=== PATIENT | male | born 1990 | race Caucasian/White ===

== ENCOUNTER 2016-10-27 16:21 | Emergency (ER) | payer SELFPAY ==
[~2016-10-27] VITALS: Ht 185.4 cm; Wt 129.3 kg
[2016-10-27 16:49] LABS: BILIRUBIN,URINE NEGATIVE (NEGATIVE); KETONES,URINE 1+ (NEGATIVE); LEUKOCYTE ESTERASE ,URINE 1+ (NEGATIVE); NITRITE,URINE NEGATIVE (NEGATIVE); PH,URINE 5 (5-9); PROTEIN,URINE 2+ (NEGATIVE); UROBILINOGEN,URINE NORMAL (NORMAL)
[2016-10-27 16:56] LABS: CALCIUM OXALATE CRYSTALS,UR MODERATE /LPF
[2016-10-27] MEDS ORDERED: KETOROLAC 30 MG/ML VIAL IVP ONE (17:15)
--- NOTE | 2016-10-27 17:19 | ED GU-Male ---
General Chief Complaint: Abdominal/GI Problems Stated Complaint: PAIN WHILE URINATING/BLOOD IN URINE Nursing Triage Note: AMBULATED TO ROOM 05 WITH COMPLAINTS OF LEFT FLANK PAIN X2 DAYS. HX OF KIDNEY STONES. Source: patient Exam Limitations: no limitations (AUBREE PEREZ MD) History of Present Illness Time seen by provider: 17:14 Initial Comments The patient reports that he has a past history of kidney stones. He states that earlier this afternoon and then at work and feeling well. He urinated which appeared to be bloody and shortly thereafter noted pain which was quite sharp and reminiscent of his previous kidney stones. This was emanating from the left flank and radiating towards the pubis. He reported that his previous stone had to be removed cystoscopically. His mother also has a history of kidney stones. Timing/Duration: this afternoon Severity/Quality: moderate Location: suprapubic, left flank Activities at Onset: physical activity Prior Genitourinary Problems: none (AUBREE PEREZ MD) Allergies and Home Medications Allergies Coded Allergies: No Known Drug Allergies (Unverified , 10/27/16) Home Medications Ciprofloxacin HCl 500 Mg Tablet, 500 MG PO BID, #14 Prescribed by: STEPHANIE GUARDADO on 10/27/16 1844 Hydrocodone/Acetaminophen 1 Each Tablet, 1 EACH PO Q4H PRN for PAIN, #10 Prescribed by: STEPHANIE GUARDADO on 10/27/16 1844 Ondansetron 4 Mg Tab.rapdis, 4 MG SL Q4H PRN for NAUSEA/VOMITING-1ST LINE, #10 Prescribed by: STEPHANIE GUARDADO on 10/27/16 1844 Constitutional: see HPI EENTM: no symptoms reported Respiratory: no symptoms reported Cardiovascular: no symptoms reported Gastrointestinal: no symptoms reported Genitourinary: see HPI Musculoskeletal: no symptoms reported Skin: no symptoms reported Psychiatric/Neurological: No Symptoms Reported Endocrine: No Symptoms Reported Hematologic/Lymphatic: No Symptoms Reported (AUBREE PEREZ MD) Past Twptsvy-Ezseut-Qxnyfh Hx Patient Social History Recent Foreign Travel: No Contact w/Someone Who Travel: No Recent Infectious Disease Expo: No Recent Hopitalizations: No (AUBREE PEERZ MD) Genitourinary Genitourinary Disorders: Kidney Stones (AUBREE PEREZ MD) Physical Exam Vital Signs Vital Sign - Last 12Hours 10/27/16 16:40 Temp 98.0 Pulse 66 Resp 16 B/P (MAP) 142/93 Pulse Ox 98 (STEPHANIE BERGERON MD) Vital Signs Capillary Refill : Less Than 3 Seconds (AUBREE PEREZ MD) General Appearance: mild distress, moderate distress HEENT: normal ENT inspection Neck: full range of motion Cardiovascular: normal peripheral pulses, regular rate, rhythm, no edema, no gallop, no JVD, no murmur Respiratory: chest non-tender, lungs clear, normal breath sounds, no respiratory distress, no accessory muscle use Gastrointestinal: normal bowel sounds, non tender, soft, no organomegaly, no pulsatile mass Back: CVA tenderness (L) Extremities: normal range of motion, non-tender, normal inspection, no pedal edema, no calf tenderness, normal capillary refill, pelvis stable 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, no motor/sensory deficits, alert, normal mood/affect, oriented x 3 Skin: normal color, warm/dry Lymphatic: no adenopathy (AUBREE PEREZ MD) Progress/Results/Core Measures Results/Orders Lab Results Laboratory Tests Test 10/27/16 16:37 Range/Units Urine Color YELLOW Urine Clarity CLEAR Urine pH 5 5-9 Urine Specific [place] 1.030 H 1.016-1.022 Urine Protein 2+ H NEGATIVE Urine Glucose (UA) NEGATIVE NEGATIVE Urine Ketones 1+ H NEGATIVE Urine Nitrite NEGATIVE NEGATIVE Urine Bilirubin NEGATIVE NEGATIVE Urine Urobilinogen NORMAL NORMAL MG/DL Urine Leukocyte Esterase 1+ H NEGATIVE Urine RBC (Auto) 5+ H NEGATIVE Urine RBC >100 H /HPF Urine WBC 2-5 /HPF Urine Crystals PRESENT H /LPF Urine Calcium Oxalate Crystals MODERATE H /LPF Urine Bacteria TRACE /HPF Urine Casts NONE /LPF Urine Mucus MODERATE H /LPF Urine Culture Indicated YES (STEPHANIE BERGERON MD) My Orders Orders - STEPHANIE BERGERON MD Abdomen/Kub 1view (10/27/16 18:37) Ondansetron Injection (Zofran Injectio (10/27/16 18:45) (STEPHANIE BERGERON MD) Medications Given in ED Current Medications Medications Dose Ordered Sig/Rex Route Start Time Stop Time Status Last Admin Dose Admin Fentanyl Citrate 100 mcg ONCE ONCE IVP 10/27/16 17:45 10/27/16 17:46 DC 10/27/16 17:42 100 MCG Ketorolac Tromethamine 30 mg ONCE ONCE IVP 10/27/16 17:15 10/27/16 17:16 DC 10/27/16 17:05 30 MG (STEPHANIE BERGERON MD) Vital Signs/I&O Vital Sign - Last 12Hours 10/27/16 16:40 Temp 98.0 Pulse 66 Resp 16 B/P (MAP) 142/93 Pulse Ox 98 (STEPHANIE BERGERON MD) Blood Pressure Mean: 109 Progress Note : Progress Note Care of this patient was assumed from Dr. Perez at 18:30. Pain was well under control. He received a liter of IV fluids. Discharge instructions were reviewed. 4 mm left UVJ ureteral stone with obstruction was identified. Patient was dismissed with strainer. KUB was ordered prior to discharge. (STEPHANIE BERGERON MD) Diagnostic Imaging Diagonstic Imaging: CT Plain Films/CT/US/NM/MRI: abdomen, pelvis Comments NAME: JAYNE GUZMÁN [facility] REC#: [id number] PT STATUS: REG ER : 1990 PHYSICIAN: AUBREE PEREZ MD ADMIT DATE: 10/27/16/ER Draft Date of Exam:10/27/16 CT ABD/PELVIS WO(KIDNEY STONE) PROCEDURE: CT urinary tract, rule out kidney stone. TECHNIQUE: Multiple contiguous axial images were obtained through the abdomen and pelvis without the use of intravenous contrast. INDICATION: Left-sided flank pain. CORRELATION STUDY: None. FINDINGS: LOWER THORAX: Clear. Trace pericardial effusion. LIVER: Unenhanced liver unremarkable. GALLBLADDER: Present and unremarkable. No bile duct dilatation. SPLEEN: Unremarkable. Small splenule in the hilum. PANCREAS: Unremarkable. ADRENAL GLANDS: Unremarkable. KIDNEYS: Approximately 4 mm stone at the left ureterovesical junction results in mild left-sided obstruction. Mild periureteric stranding particularly at the distal aspect of the ureter. Right kidney and collecting system are unremarkable. ABDOMINAL AORTA: Unremarkable, nonaneurysmal. GASTROINTESTINAL TRACT: No obstruction or inflammation. Normal appendix. URINARY BLADDER: Decompressed and therefore not well evaluated. REPRODUCTIVE: A few punctate calcifications in the prostate gland. OSSEOUS STRUCTURES: No acute abnormality. Small spina bifida occulta defect in the superior sacrum. IMPRESSION: 1. Mild left-sided obstructive uropathy owing to an approximately 4 mm stone in the distal left ureter at the ureterovesical junction. Dictated on workstation # [id number] Dict: 10/27/16 1721 Trans: 10/27/16 1728 [id number] Interpreted by: LISA MULLER DO (STEPHANIE BERGERON MD) Departure Communication Progress Notes UA shows 100 RBCs per high power field (AUBREE PEREZ MD) Impression Impression: Primary Impression: Left ureteral stone Additional Impressions: Ureteral obstruction, left Nausea and vomiting Qualified Codes: R11.2 - Nausea with vomiting, unspecified Disposition: HOME, SELF-CARE Condition: Improved Departure-Patient Inst. Decision time for Depature: 18:30 (STEPHANIE BERGERON MD) Referrals: NO,LOCAL PHYSICIAN (PCP) Primary Care Physician MARS GRAY MD Patient Instructions: Kidney Stones in Adults Add. Discharge Instructions: Drink plenty of clear liquids. Strain your urine and bring any stones collected to your follow-up appointment. Please establish with a primary care provider soon as possible and follow-up with a urologist. Return to care if symptoms worsen. Use your prescriptions as directed. All discharge instructions reviewed with patient and/or family. Voiced understanding. Scripts Ondansetron (Zofran Odt) 4 Mg Tab.rapdis 4 MG SL Q4H Y for NAUSEA/VOMITING-1ST LINE, #10 TAB Prov: STEPHANIE BERGERON MD 10/27/16 Hydrocodone/Acetaminophen (Hydrocodon -Acetaminophen 5-325) 1 Each Tablet 1 EACH PO Q4H Y for PAIN, #10 TAB Prov: STEPHANIE BERGERON MD 10/27/16 Ciprofloxacin HCl (Cipro) 500 Mg Tablet 500 MG PO BID, #14 TAB Prov: STEPHANIE BERGERON MD 10/27/16 AUBREE PEREZ MD Oct 27, 2016 17:19 STEPHANIE BERGERON MD Oct 27, 2016 18:44
--- NOTE | 2016-10-27 17:28 | Diagnostic Imaging Report ---
PROCEDURE: CT urinary tract, rule out kidney stone. TECHNIQUE: Multiple contiguous axial images were obtained through the abdomen and pelvis without the use of intravenous contrast. INDICATION: Left-sided flank pain. CORRELATION STUDY: None. FINDINGS: LOWER THORAX: Clear. Trace pericardial effusion. LIVER: Unenhanced liver unremarkable. GALLBLADDER: Present and unremarkable. No bile duct dilatation. SPLEEN: Unremarkable. Small splenule in the hilum. PANCREAS: Unremarkable. ADRENAL GLANDS: Unremarkable. KIDNEYS: Approximately 4 mm stone at the left ureterovesical junction results in mild left-sided obstruction. Mild periureteric stranding particularly at the distal aspect of the ureter. Right kidney and collecting system are unremarkable. ABDOMINAL AORTA: Unremarkable, nonaneurysmal. GASTROINTESTINAL TRACT: No obstruction or inflammation. Normal appendix. URINARY BLADDER: Decompressed and therefore not well evaluated. REPRODUCTIVE: A few punctate calcifications in the prostate gland. OSSEOUS STRUCTURES: No acute abnormality. Small spina bifida occulta defect in the superior sacrum. IMPRESSION: 1. Mild left-sided obstructive uropathy owing to an approximately 4 mm stone in the distal left ureter at the ureterovesical junction. Dictated by: Dictated on workstation # [id number]
[2016-10-27] MEDS ORDERED: NS IV 1000 ML 1,000 ML IV SCH (17:45)
[2016-10-27] MEDS ORDERED: fentaNYL INJECTION 100 MCG/2 ML AMP IVP ONE (17:45)
[2016-10-27] MEDS ORDERED: HYDR-3812 PO (18:44)
[2016-10-27] MEDS ORDERED: CIPR-225 PO (18:44)
[2016-10-27] MEDS ORDERED: ONDA4TAB8 SL (18:44)
[2016-10-27] MEDS ORDERED: ONDANSETRON 4 MG/2 ML (SDV) Z0FRAN IVP ONE (18:45)
[2016-10-27 19:34] VITALS: BP 118/79
--- NOTE | 2016-10-27 19:37 | Diagnostic Imaging Report ---
INDICATION: Left flank pain x2 days. History of stones. TECHNIQUE: 2 supine view of the abdomen 7:16 PM CORRELATION STUDY: None FINDINGS: There are few gas-filled loops of small bowel noted particularly in the right upper quadrant, may reflect mild ileus. Gas and stool within the colon without findings to suggest obstruction. Gas at the level of the rectum. No definitive pathologic intra-abdominal calcifications. Spina bifida occulta defect at S1 level. IMPRESSION: 1. Few gas-filled loops of small bowel may be reflective of mild ileus pattern. No findings to suggest obstruction. Dictated by: Dictated on workstation # [id number]
== END 2016-10-27 19:34 | disposition home or self-care (01) ==
LOC: EDUNIT# 16:21 → ER 16:25
DX: N20.1 Calculus of ureter (principal); N13.5 Crossing vessel and stricture of ureter without hydronephrosis; R11.2 Nausea with vomiting, unspecified; Z87.442 Personal history of urinary calculi
CPT/HCPCS: 74000; 74176; 81000; 87088

== ENCOUNTER 2019-12-22 18:38 | Emergency (ER) | payer SELFPAY ==
[~2019-12-22] VITALS: Ht 185 cm; Wt 135.0 kg
[~2019-12-22 18:38] MED LIST: ACHD5005 PO; CIPR-225 PO; ONDA4TAB8 SL
[2019-12-22] MEDS ORDERED: NS IV 1000 ML 1,000 ML IV STA (18:55)
[2019-12-22] MEDS ORDERED: KETOROLAC 30 MG/ML VIAL IVP STA (18:55)
[2019-12-22 19:07] LABS: BILIRUBIN,URINE NEGATIVE (NEGATIVE); CLARITY,URINE CLOUDY; COLOR,URINE RED; GLUCOSE, URINE (UA) NEGATIVE (NEGATIVE); KETONES,URINE NEGATIVE (NEGATIVE); LEUKOCYTE ESTERASE ,URINE NEGATIVE (NEGATIVE); NITRITE,URINE NEGATIVE (NEGATIVE); PROTEIN,URINE NEGATIVE (NEGATIVE)
[2019-12-22 19:08] LABS: BACTERIA,URINE NEGATIVE /HPF; RBC,URINE >100 /HPF; SQUAMOUS EPITHELIAL CELL,UR 0-2 /HPF
[2019-12-22 19:14] LABS: HEMATOCRIT 43 % (40-54); HEMOGLOBIN 14.7 G/DL (13.3-17.7); MEAN CORPUSCULAR HEMOGLOBIN 32 PG (25-34); MEAN CORPUSCULAR HGB CONC 34 G/DL (32-36); MEAN CORPUSCULAR VOLUME 92 FL (80-99); PLATELET COUNT 270 10^3/uL (130-400); RED CELL DISTRIBUTION WIDTH 12.2 % (10.0-14.5); WHITE BLOOD COUNT 10.3 10^3/uL (4.3-11.0)
[2019-12-22 19:15] LABS: BASOPHILS # (AUTO) 0.1 10^3/uL (0.0-0.1); BASOPHILS % (AUTO) 1 % (0-10); EOSINOPHILS # (AUTO) 0.3 10^3/uL (0.0-0.3); EOSINOPHILS % (AUTO) 2 % (0-10); LYMPHOCYTES % (AUTO) 39 % (12-44); MEAN PLATELET VOLUME 10.3 FL (7.4-10.4); MONOCYTES # (AUTO) 1.1 X 10^3 (0.0-1.0); MONOCYTES % (AUTO) 10 % (0-12); NEUTROPHILS # (AUTO) 4.9 X 10^3 (1.8-7.8); NEUTROPHILS % (AUTO) 48 % (42-75)
--- NOTE | 2019-12-22 19:28 | Diagnostic Imaging Report ---
PROCEDURE: CT abdomen and pelvis without contrast. TECHNIQUE: Multiple contiguous axial images were obtained through the abdomen and pelvis without the use of intravenous contrast. Auto Exposure Controls were utilized during the CT exam to meet ALARA standards for radiation dose reduction. INDICATION: Abdominal pain and hematuria There is mild residual scarring in the medial segment of the right middle lobe. Below the diaphragm, unenhanced images of the liver, gallbladder, pancreas, adrenal glands and spleen are stable and unremarkable. Occasional punctate nonobstructing stones are present within the mid and lower portions of both kidneys. In addition, there is an approximately 0.3 cm calculus at the level of the left ureteropelvic junction without significant hydronephrosis. There is no evidence of perinephric edema and/or inflammation. No other ureteric or bladder calculus is identified. The appendix has a normal appearance. There is no evidence of free fluid within the abdomen or pelvis. IMPRESSION: Bilateral punctate renal calculi with an approximately 0.3 cm stone at the left ureteropelvic junction without significant associated hydronephrosis. Dictated by: Dictated on workstation # [id number]
[2019-12-22 19:32] LABS: ALANINE AMINOTRANSFERASE 27 U/L (0-55); ALBUMIN 4.2 GM/DL (3.2-4.5); ALKALINE PHOSPHATASE 47 U/L (40-136); BILIRUBIN,TOTAL 0.2 MG/DL (0.1-1.0); BUN/CREATININE RATIO 16; CALCIUM 9.5 MG/DL (8.5-10.1); CARBON DIOXIDE 27 MMOL/L (21-32); CHLORIDE 104 MMOL/L (98-107); CREATININE SERUM 1.01 MG/DL (0.60-1.30); GFR ESTIMATED > 60; GLUCOSE 97 MG/DL (70-105); POTASSIUM 4.1 MMOL/L (3.6-5.0); SODIUM 138 MMOL/L (135-145); TOTAL PROTEIN 6.7 GM/DL (6.4-8.2)
[2019-12-22 19:33] LABS: LIPASE 24 U/L (8-78)
--- NOTE | 2019-12-22 19:37 | ED General ---
General Chief Complaint: - Urinary Stated Complaint: BLOOD IN URINE,PRESSURE IN LEFT HIP Nursing Triage Note: PT REPORTS PRESSURE IN HIS LEFT FLANK ARE AND BLOOD IN HIS URINE. Nursing Sepsis Screen: No Definite Risk Source of Information: Patient History of Present Illness Date Seen by Provider: Dec 22, 2019 Time Seen by Provider: 18:55 Initial Comments 29-year-old male presenting with complaints of blood in his urine and left flank pain going into his hip. He states that the pain is a pressure sensation that has been present about the day. He does have a history of kidney stones but in the past the kidney stones and been causing severe pain. The pain he has today is just a mild pressure. He has noticed blood in his urine similar to when he had kidney stones in the past. He denies any fever or chills. He has no pain with urination. He has no nausea or vomiting. He denies any change in his bowels. Allergies and Home Medications Allergies Coded Allergies: No Known Drug Allergies (Unverified , 10/27/16) Home Medications Ciprofloxacin HCl 500 Mg Tablet, 500 MG PO BID Prescribed by: STEPHANIE GUARDADO on 10/27/161843 Hydrocodone Bit/Acetaminophen 1 Each Tablet, 1 EACH PO Q4H PRN for PAIN Prescribed by: STEPHANIE GUARDADO on 10/27/161843 Hydrocodone/Acetaminophen 1 Each Tablet, 1 EACH PO Q4H PRN for PAIN-SEVERE (8- 10) Prescribed by: LIZET CORTEZRT on 12/22/192025 Ondansetron 4 Mg Tab.rapdis, 4 MG SL Q4H PRN for NAUSEA/VOMITING-1ST LINE Prescribed by: STEPHANIE GUARDADO on 10/27/161843 Tamsulosin HCl 0.4 Mg Cap, 0.4 MG PO DAILY Prescribed by: LIZET MADDENYART on 12/22/192025 Patient Home Medication List Home Medication List Reviewed: Yes Review of Systems Review of Systems Constitutional: No chills, No fever EENTM: no symptoms reported Respiratory: no symptoms reported Cardiovascular: no symptoms reported Gastrointestinal: other (left flank pain) Genitourinary: hematuria, pain (left flank pain) Musculoskeletal: no symptoms reported Skin: no symptoms reported Psychiatric/Neurological: No Symptoms Reported Past Tmrdlcz-Fcbjdj-Wsbouo Hx Past Med/Social Hx: Reviewed Nursing Past Med/Soc Hx Patient Social History Alcohol Use: Denies Use Recreational Drug Use: No Smoking Status: Current Everyday Smoker Type Used: Cigarettes 2nd Hand Smoke Exposure: No Recent Foreign Travel: No Contact w/Someone Who Travel: No Recent Infectious Disease Expo: No Recent Hopitalizations: No Physical Abuse: No Sexual Abuse: No Mistreated: No Fear: No Seasonal Allergies Seasonal Allergies: No Past Medical History Surgeries: Yes (RETRIEVAL OF KIDNEY STONES.) Respiratory: No Cardiac: No Neurological: No Genitourinary: Yes Kidney Stones Gastrointestinal: No Musculoskeletal: No Endocrine: No HEENT: No Cancer: No Psychosocial: No Integumentary: No Blood Disorders: No Physical Exam Vital Signs Vital Signs - First Documented 12/22/19 18:51 Temp 36.2 Pulse 87 Resp 18 B/P (MAP) 156/93 (114) Pulse Ox 100 O2 Delivery Room Air Capillary Refill : Less Than 3 Seconds Height, Weight, BMI Height: 6'1.00" Weight: 285lbs. oz. 129.257700zj; 39.00 BMI Method:Stated General Appearance: No Apparent Distress, WD/WN HEENT: PERRL/EOMI, Pharynx Normal Neck: Non Tender, Supple Respiratory: Chest Non Tender, Lungs Clear, Normal Breath Sounds, No Accessory Muscle Use, No Respiratory Distress Cardiovascular: Regular Rate, Rhythm, Normal Peripheral Pulses Gastrointestinal: Normal Bowel Sounds, No Organomegaly, No Pulsatile Mass, Soft, Tenderness (mild tenderness of the left flank and left CVA area) Back: CVA Tenderness (L) Extremity: Normal Capillary Refill, Normal Inspection, Normal Range of Motion, Non Tender, No Calf Tenderness, No Pedal Edema Neurologic/Psychiatric: Alert, Oriented x3, No Motor/Sensory Deficits, Normal Mood/Affect, communications representative II-XII Norm as Tested Skin: Normal Color, Warm/Dry Progress/Results/Core Measures Suspected Sepsis Recent Fever Within 48 Hours: No Infection Criteria Present: None New/Unexplained Altered Menta: No Sepsis Screen: No Definite Risk SIRS Temperature: Pulse: 87 Respiratory Rate: 18 Laboratory Tests 12/22/19 19:05: White Blood Count 10.3 Blood Pressure 156 /93 Mean: 114 Laboratory Tests 12/22/19 19:05: Creatinine 1.01, Platelet Count 270, Total Bilirubin 0.2 Results/Orders Lab Results Laboratory Tests Test 12/22/19 18:45 12/22/19 19:05 Range/Units Urine Color RED H Urine Clarity CLOUDY H Urine pH 6.0 5-9 Urine Specific [place] 1.025 H 1.016-1.022 Urine Protein NEGATIVE NEGATIVE Urine Glucose (UA) NEGATIVE NEGATIVE Urine Ketones NEGATIVE NEGATIVE Urine Nitrite NEGATIVE NEGATIVE Urine Bilirubin NEGATIVE NEGATIVE Urine Urobilinogen 0.2 < = 1.0 MG/DL Urine Leukocyte Esterase NEGATIVE NEGATIVE Urine RBC (Auto) 3+ H NEGATIVE Urine RBC >100 H /HPF Urine WBC 2-5 /HPF Urine Squamous Epithelial Cells 0-2 /HPF Urine Crystals NONE /LPF Urine Bacteria NEGATIVE /HPF Urine Casts NONE /LPF Urine Mucus NEGATIVE /LPF Urine Culture Indicated NO White Blood Count 10.3 4.3-11.0 10^3/uL Red Blood Count 4.66 4.35-5.85 10^6/uL Hemoglobin 14.7 13.3-17.7 G/DL Hematocrit 43 40-54 % Mean Corpuscular Volume 92 80-99 FL Mean Corpuscular Hemoglobin 32 25-34 PG Mean Corpuscular Hemoglobin Concent 34 32-36 G/DL Red Cell Distribution Width 12.2 10.0-14.5 % Platelet Count 270 130-400 10^3/uL Mean Platelet Volume 10.3 7.4-10.4 FL Neutrophils (%) (Auto) 48 42-75 % Lymphocytes (%) (Auto) 39 12-44 % Monocytes (%) (Auto) 10 0-12 % Eosinophils (%) (Auto) 2 0-10 % Basophils (%) (Auto) 1 0-10 % Neutrophils # (Auto) 4.9 1.8-7.8 X 10^3 Lymphocytes # (Auto) 4.0 1.0-4.0 X 10^3 Monocytes # (Auto) 1.1 H 0.0-1.0 X 10^3 Eosinophils # (Auto) 0.3 0.0-0.3 10^3/uL Basophils # (Auto) 0.1 0.0-0.1 10^3/uL Sodium Level 138 135-145 MMOL/L Potassium Level 4.1 3.6-5.0 MMOL/L Chloride Level 104 98-107 MMOL/L Carbon Dioxide Level 27 21-32 MMOL/L Anion Gap 7 5-14 MMOL/L Blood Urea Nitrogen 16 7-18 MG/DL Creatinine 1.01 0.60-1.30 MG/DL Estimat Glomerular Filtration Rate > 60 BUN/Creatinine Ratio 16 Glucose Level 97 70-105 MG/DL Calcium Level 9.5 8.5-10.1 MG/DL Corrected Calcium 9.3 8.5-10.1 MG/DL Total Bilirubin 0.2 0.1-1.0 MG/DL Aspartate Amino Transf (AST/SGOT) 19 5-34 U/L Alanine Aminotransferase (ALT/SGPT) 27 0-55 U/L Alkaline Phosphatase 47 40-136 U/L Total Protein 6.7 6.4-8.2 GM/DL Albumin 4.2 3.2-4.5 GM/DL Lipase 24 8-78 U/L My Orders Orders - LIZET MARTÍNEZ MD Comprehensive Metabolic Panel (12/22/19 18:55) Lipase (12/22/19 18:55) Ua Culture If Indicated (12/22/19 18:55) Ed Iv/Invasive Line Start (12/22/19 18:55) Cbc With Automated Diff (12/22/19 18:55) Ct Abdomen/Pelvis Wo (12/22/19 18:55) Ns Iv 1000 Ml (Sodium Chloride 0.9%) (12/22/19 18:55) Ketorolac Injection (Toradol Injection) (12/22/19 18:55) Rx-Hydrocodone/Apap 5-325 Mg (Rx-Vicodin (12/22/19 20:30) Tamsulosin Capsule (Flomax Capsule) (12/22/19 20:20) Strain Urine (12/22/19 20:20) Medications Given in ED Current Medications Medications Dose Ordered Sig/Rex Route Start Time Stop Time Status Last Admin Dose Admin Acetaminophen/ Hydrocodone Bitart 1 ea Q4H PRN PO 12/22/19 20:30 12/22/19 20:31 DC 12/22/19 20:29 1 EA Vital Signs/I&O 12/22/19 12/22/19 18:51 20:31 Temp 36.2 36.9 Pulse 87 82 Resp 18 18 B/P (MAP) 156/93 (114) 142/92 (114) Pulse Ox 100 100 O2 Delivery Room Air Room Air Capillary Refill : Less Than 3 Seconds Blood Pressure Mean: 114 Progress Note #1: Progress Note obtain basic labs, urinalysis and a CT scan without contrast to evaluate for kidney stones. Given IV fluid for hydration and a dose of Toradol for the pressure sensation Progress Note #2: Time: 19:33 Progress Note Labs show stable CBC without acute significant abnormality. His urinalysis does show blood without infection. His CT scan shows a 3 mm kidney stone at the ureteral pelvic junction without hydronephrosis. He has small punctate stones in both kidneys. Appendix is normal. Awaiting chemistry. Progress Note #3: Time: 20:13 Progress Note chemistry is normal as well. Pt continues to have no significant pain. Counseled on follow up and return precautions. Treat with Flomax and hydrocodone. Diagnostic Imaging Diagonstic Imaging: CT Plain Films/CT/US/NM/MRI: abdomen, pelvis Comments NAME: JAYNE GUZMÁN [facility] REC#: [id number] PT STATUS: REG ER : 1990 PHYSICIAN: LIZET MARTÍNEZ MD ADMIT DATE: 12/22/19/ER FS Draft Date of Exam:12/22/19 CT ABDOMEN/PELVIS WO PROCEDURE: CT abdomen and pelvis without contrast. TECHNIQUE: Multiple contiguous axial images were obtained through the abdomen and pelvis without the use of intravenous contrast. Auto Exposure Controls were utilized during the CT exam to meet ALARA standards for radiation dose reduction. INDICATION: Abdominal pain and hematuria There is mild residual scarring in the medial segment of the right middle lobe. Below the diaphragm, unenhanced images of the liver, gallbladder, pancreas, adrenal glands and spleen are stable and unremarkable. Occasional punctate nonobstructing stones are present within the mid and lower portions of both kidneys. In addition, there is an approximately 0.3 cm calculus at the level of the left ureteropelvic junction without significant hydronephrosis. There is no evidence of perinephric edema and/or inflammation. No other ureteric or bladder calculus is identified. The appendix has a normal appearance. There is no evidence of free fluid within the abdomen or pelvis. IMPRESSION: Bilateral punctate renal calculi with an approximately 0.3 cm stone at the left ureteropelvic junction without significant associated hydronephrosis. Dictated on workstation # [id number] Dict: 12/22/191921 Trans: 12/22/191927 [facility] [id number] Interpreted by: GUNNAR JARAMILLO MD Electronically signed by: Departure Impression Primary Impression: Ureteral calculus, left Additional Impressions: Renal colic on left side Hematuria Qualified Codes: R31.0 - Gross hematuria Disposition: 01 HOME, SELF-CARE Condition: Stable Departure-Patient Inst. Decision time for Depature: 20:23 Referrals: NO,LOCAL PHYSICIAN (PCP) Primary Care Physician MARS GRAY MD [facility] Patient Instructions: Kidney Stones (DC), How to Strain Your Urine, Kidney S tone Diet, Renal Colic (DC) Add. Discharge Instructions: stay well hydrated and drink plenty of water. Take the Flomax (Tamsulosin) to help the kidney stone pass. Use the Hydrocodone for severe pain. Use Ibuprofen or Naproxen for inflammation and pain. All discharge instructions reviewed with patient and/or family. Voiced understanding. Scripts Tamsulosin HCl (Flomax) 0.4 Mg Cap 0.4 MG PO DAILY for Renal Colic for 7 Days, #7 CAP 0 Refills Prov: LIZET MARTÍNEZ MD 12/22/19 Hydrocodone/Acetaminophen (Hydrocodone-Acetamin 5-325 mg) 1 Each Tablet 1 EACH PO Q4H PRN for PAIN-SEVERE (8-10) for 3 Days, #20 TAB 0 Refills Prov: LIZET MARTÍNEZ MD 12/22/19 Work/School Note: Work Release Form Date Seen in the Emergency Department: Dec 22, 2019 Return to Work: Dec 26, 2019 Restrictions: No Restrictions Other Restrictions Listed Below: Do not drive if having to take Pain medicine for kidney stone LIZET MARTÍNEZ MD Dec 22, 2019 19:37
[2019-12-22] MEDS ORDERED: TAMSULOSIN 0.4 MG (FLOMAX) CAP PO STA (20:20)
[2019-12-22] MEDS ORDERED: HYDR-3812 PO (20:26)
[2019-12-22] MEDS ORDERED: TMSL.4C PO (20:26)
[2019-12-22] MEDS ORDERED: RX-HYDROCODONE/APAP 5/325 MG #4 TAB PK PO PRN (20:30)
[2019-12-22 20:31] VITALS: BP 142/92
== END 2019-12-22 20:31 | disposition home or self-care (01) ==
LOC: EDUNIT# 18:38 → ER FS 18:40
DX: N20.1 Calculus of ureter (principal); F17.210 Nicotine dependence, cigarettes, uncomplicated
CPT/HCPCS: 36415; 74176; 80053; 81000; 83690; 85025

== ENCOUNTER 2020-06-16 13:58 | Emergency (ER) | payer SELFPAY ==
[~2020-06-16] VITALS: Ht 185 cm; Wt 141.0 kg
[~2020-06-16 13:58] MED LIST changes: +TMSL.4C PO
[2020-06-16 14:00] VITALS: BP 158/95
[2020-06-16] MEDS ORDERED: KETOROLAC 30 MG/ML VIAL IM STA (14:06)
--- NOTE | 2020-06-16 14:06 | ED GU-Female ---
General Chief Complaint: - Urinary Stated Complaint: HEMATURIA; GROIN PAIN History of Present Illness Date Seen by Provider: Jun 16, 2020 Time Seen by Provider: 14:06 Initial Comments 30-year-old male presents with right flank and groin pain along with some hematuria. He reports his urine has cleared some. He has a history of recurrent kidney stones and this is similar to how his previous kidney stones presented. He denies any fevers chills nausea or vomiting. He has no other systemic complaints. He reports that the pain started yesterday in the flank and then is down in the groin today. Allergies and Home Medications Allergies Coded Allergies: No Known Drug Allergies (Unverified , 10/27/16) Home Medications Ciprofloxacin HCl 500 Mg Tablet, 500 MG PO BID Prescribed by: STEPHANIE GUARDADO on 10/27/161843 Hydrocodone Bit/Acetaminophen 1 Each Tablet, 1 EACH PO Q4H PRN for PAIN Prescribed by: STEPHANIE GUARDADO on 10/27/161843 Hydrocodone/Acetaminophen 1 Each Tablet, 1 EACH PO Q4H PRN for PAIN-SEVERE (8- 10) Prescribed by: LIZET MARTÍNEZ on 12/22/192025 Ondansetron 4 Mg Tab.rapdis, 4 MG SL Q4H PRN for NAUSEA/VOMITING-1ST LINE Prescribed by: STEPHANIE GUARDADO on 10/27/161843 Tamsulosin HCl 0.4 Mg Cap, 0.4 MG PO DAILY Prescribed by: LIZET MARTÍNEZ on 12/22/192025 Patient Home Medication List Home Medication List Reviewed: Yes Review of Systems Review of Systems Constitutional: No chills, No fever EENTM: no symptoms reported Respiratory: no symptoms reported Cardiovascular: no symptoms reported Gastrointestinal: see HPI Genitourinary: see HPI Musculoskeletal: see HPI Skin: no symptoms reported Psychiatric/Neurological: No Symptoms Reported Endocrine: No Symptoms Reported Past Nexodqh-Cmthml-Oloykb Hx Past Med/Social Hx: Reviewed Nursing Past Med/Soc Hx Patient Social History Type Used: Cigarettes 2nd Hand Smoke Exposure: No Recent Hopitalizations: No Seasonal Allergies Seasonal Allergies: No Past Medical History Surgeries: Yes (RETRIEVAL OF KIDNEY STONES.) Respiratory: No Cardiac: No Neurological: No Genitourinary: Yes Kidney Stones Gastrointestinal: No Musculoskeletal: No Endocrine: No HEENT: No Cancer: No Psychosocial: No Integumentary: No Blood Disorders: No Physical Exam Vital Signs Vital Signs - First Documented 06/16/20 14:00 Temp 36.4 Pulse 82 Resp 18 B/P (MAP) 158/95 (116) Pulse Ox 98 O2 Delivery Room Air Capillary Refill : Height, Weight, BMI Height: 6'1.00" Weight: 285lbs. oz. 129.954218vg; 39.00 BMI Method:Stated General Appearance: no apparent distress Cardiovascular: normal peripheral pulses, regular rate, rhythm Respiratory: lungs clear, normal breath sounds Gastrointestinal: tenderness (Mild right lower quadrant) Back: CVA tenderness (R) (Minimal) Neurologic/Psychiatric: alert, normal mood/affect, oriented x 3 Skin: normal color, warm/dry Progress/Results/Core Measures Suspected Sepsis SIRS Temperature: Pulse: Respiratory Rate: Blood Pressure / Mean: Results/Orders Lab Results Laboratory Tests Test 06/16/20 14:05 Range/Units Urine Color YELLOW Urine Clarity CLEAR Urine pH 6.0 5-9 Urine Specific [place] 1.025 H 1.016-1.022 Urine Protein NEGATIVE NEGATIVE Urine Glucose (UA) NEGATIVE NEGATIVE Urine Ketones NEGATIVE NEGATIVE Urine Nitrite NEGATIVE NEGATIVE Urine Bilirubin NEGATIVE NEGATIVE Urine Urobilinogen 0.2 < = 1.0 MG/DL Urine Leukocyte Esterase NEGATIVE NEGATIVE Urine RBC (Auto) 2+ H NEGATIVE Urine RBC 25-50 H /HPF Urine WBC RARE /HPF Urine Squamous Epithelial Cells NONE /HPF Urine Crystals NONE /LPF Urine Bacteria NEGATIVE /HPF Urine Casts NONE /LPF Urine Mucus NEGATIVE /LPF Urine Culture Indicated NO My Orders Orders - MABEL HARMONVOR L DO Abdomen (Kub) 1 View (06/16/20 14:06) Ua Culture If Indicated (06/16/20 14:06) Ketorolac Injection (Toradol Injection) (06/16/20 14:06) Ct Abd/Pelvis Wo(Kidney Stone) (06/16/20 14:06) Vital Signs/I&O 06/16/20 14:00 Temp 36.4 Pulse 82 Resp 18 B/P (MAP) 158/95 (116) Pulse Ox 98 O2 Delivery Room Air Capillary Refill : Progress Note : Time: 14:51 Progress Note Patient with 4 mm kidney stone in the right distal ureter. We will provide him with some Flomax and pain medication. If he continues to have pain in a few days he should follow-up with urology for further evaluation Diagnostic Imaging Diagonstic Imaging: CT Plain Films/CT/US/NM/MRI: abdomen Comments [place] NAME: JAYNE GUZMÁN [facility] REC#: [id number] PT STATUS: REG ER : 1990 PHYSICIAN: GEO HARMON DO ADMIT DATE: 06/16/20/ER FS Draft Date of Exam:06/16/20 CT ABD/PELVIS WO(KIDNEY STONE) PROCEDURE: CT urinary tract, rule out kidney stone. TECHNIQUE: Multiple contiguous axial images were obtained through the abdomen and pelvis without the use of intravenous contrast. Auto Exposure Controls were utilized during the CT exam to meet ALARA standards for radiation dose reduction. INDICATION: Hematuria. Kidney stones. COMPARISON: CT abdomen and pelvis without contrast 12/22/2019. FINDINGS: 0.4 cm renal stone in the distal right ureter at the level of the pelvic brim results in moderate right hydronephrosis. There are a couple punctate nonobstructing calyceal tip renal stones in the left kidney. No left hydronephrosis. The lung bases are clear. The liver, gallbladder, pancreas, spleen, adrenals, bladder and appendix are negative on this noncontrast exam. No free intraperitoneal air or fluid. No lymphadenopathy. No evidence of bowel obstruction. No acute osseous finding. IMPRESSION: 0.4 cm renal stone in the distal right ureter resulting in moderate right hydronephrosis. Departure Impression Primary Impression: Right kidney stone Disposition: HOME, SELF-CARE Condition: Stable Departure-Patient Inst. Referrals: NO,LOCAL PHYSICIAN (PCP/Family) Primary Care Physician Patient Instructions: Kidney Stones (DC), Renal Colic (DC) Add. Discharge Instructions: Follow-up with urologist in 4 to 5 days if symptoms or not improving Drink plenty of water All discharge instructions reviewed with patient and/or family. Voiced understanding. Scripts Tamsulosin HCl (Flomax) 0.4 Mg Cap 0.4 MG PO DAILY PRN, #10 CAP Prov: GEO HARMON DO 06/16/20 Ondansetron (Ondansetron Odt) 4 Mg Tab.rapdis 4 MG PO Q6H PRN for NAUSEA/VOMITING, #20 TAB 0 Refills Prov: GEO HARMON DO 06/16/20 Hydrocodone/Acetaminophen (Hydrocodone-Acetamin 5-325 mg) 1 Each Tablet 1 EACH PO Q4H PRN for PAIN-SEVERE (8-10) for 3 Days, #10 TAB 0 Refills Prov: GEO HARMON DO 06/16/20 GEO HARMON DO Jun 16, 2020 14:06
[2020-06-16 14:20] LABS: BACTERIA,URINE NEGATIVE /HPF; BILIRUBIN,URINE NEGATIVE (NEGATIVE); CLARITY,URINE CLEAR; COLOR,URINE YELLOW; GLUCOSE, URINE (UA) NEGATIVE (NEGATIVE); KETONES,URINE NEGATIVE (NEGATIVE); LEUKOCYTE ESTERASE ,URINE NEGATIVE (NEGATIVE); NITRITE,URINE NEGATIVE (NEGATIVE); PROTEIN,URINE NEGATIVE (NEGATIVE); RBC,URINE 25-50 /HPF; WBC,URINE RARE /HPF
--- NOTE | 2020-06-16 14:46 | Diagnostic Imaging Report ---
PROCEDURE: CT urinary tract, rule out kidney stone. TECHNIQUE: Multiple contiguous axial images were obtained through the abdomen and pelvis without the use of intravenous contrast. Auto Exposure Controls were utilized during the CT exam to meet ALARA standards for radiation dose reduction. INDICATION: Hematuria. Kidney stones. COMPARISON: CT abdomen and pelvis without contrast 12/22/2019. FINDINGS: 0.4 cm renal stone in the distal right ureter at the level of the pelvic brim results in moderate right hydronephrosis. There are a couple punctate nonobstructing calyceal tip renal stones in the left kidney. No left hydronephrosis. The lung bases are clear. The liver, gallbladder, pancreas, spleen, adrenals, bladder and appendix are negative on this noncontrast exam. No free intraperitoneal air or fluid. No lymphadenopathy. No evidence of bowel obstruction. No acute osseous finding. IMPRESSION: 0.4 cm renal stone in the distal right ureter resulting in moderate right hydronephrosis. Dictated by: Dictated on workstation # [id number]
[2020-06-16] MEDS ORDERED: ACHD5005 PO (14:55)
[2020-06-16] MEDS ORDERED: TMSL.4C PO (14:55)
[2020-06-16] MEDS ORDERED: ONDA4TAB11 PO (14:55)
--- NOTE | 2020-06-16 15:04 | Diagnostic Imaging Report ---
INDICATION: Right flank pain. FINDINGS: Bowel gas pattern is nonspecific. There are no abnormal abdominal calcifications. No free air. IMPRESSION: Nonspecific bowel gas pattern. Dictated by: Dictated on workstation # [id number]
== END 2020-06-16 14:58 | disposition home or self-care (01) ==
LOC: EDUNIT# 13:58 → ER FS 14:00
DX: N13.2 Hydronephrosis with renal and ureteral calculous obstruction (principal)
CPT/HCPCS: 74018; 74176; 81000

== ENCOUNTER 2021-07-30 07:12 | Emergency (ER) | payer SELFPAY ==
[~2021-07-30] VITALS: Ht 185 cm; Wt 140.0 kg
[~2021-07-30 07:12] MED LIST changes: +ONDA4TAB11 PO
[2021-07-30] MEDS ORDERED: KETOROLAC 30 MG/ML VIAL IVP STA (07:21)
[2021-07-30] MEDS ORDERED: NS IV 1000 ML 1,000 ML IV STA (07:21)
[2021-07-30] MEDS ORDERED: ONDANSETRON 4 MG/2 ML (SDV) Z0FRAN IVP STA (07:21)
[2021-07-30 07:27] VITALS: BP 154/117
[2021-07-30 07:42] LABS: BILIRUBIN,URINE NEGATIVE (NEGATIVE); CLARITY,URINE CLEAR; COLOR,URINE YELLOW; GLUCOSE, URINE (UA) NEGATIVE (NEGATIVE); KETONES,URINE NEGATIVE (NEGATIVE); LEUKOCYTE ESTERASE ,URINE NEGATIVE (NEGATIVE); NITRITE,URINE NEGATIVE (NEGATIVE); PH,URINE 5.5 (5-9); PROTEIN,URINE NEGATIVE (NEGATIVE)
--- NOTE | 2021-07-30 07:42 | ED General ---
General Chief Complaint: Abdominal/GI Problems Stated Complaint: BLOODY STOOL; ABD PAIN Nursing Triage Note: Patient has presented to ER with cc of lower left side abd pain and blood in his urine the last 2 days. Patient reports that this morning he vomited on the way to work. He also reports that he has some blood in the stool the past 2 days. He reports a histor of kidney stones and a hemmorid. Source of Information: Patient, Old Records History of Present Illness Date Seen by Provider: Jul 30, 2021 Time Seen by Provider: 07:19 Initial Comments 31 yo male presenting with several days of pain with urination and LLQ abdominal pain. He has also had pressure in his rectum like he needs to have a bowel movem ent frequently. He has been having some bright red blood when he has a bowel movement x 2 days. He has history of kidney stones and hemorrhoids. He thought he passed a kidney stone a day or two ago but continues to have pain in LLQ with pressure in his rectum. Today he had been driving to work when he had pain and an episode of nausea and vomiting associated with the LLQ pain. 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 He denies fever or chills. He has not followed up with anyone as he states he does not have insurance so he did not have a provider to see. Timing/Duration: 2-3 Days Severity: Severe Modifying Factors: worse with Movement, worse with Other (urinating or defecating makes the pain worse) Associated Systoms: No Chest Pain, No Cough, No Diaphoresis, No Fever/Chills, No Headaches, No Loss of Appetite, No Malaise; Nausea/Vomiting (when pain is severe); No Rash, No Seizure, No Shortness of Air, No Syncope, No Weakness Allergies and Home Medications Allergies Coded Allergies: No Known Drug Allergies (Unverified , 10/27/16) Patient Home Medication List Home Medication List Reviewed: Yes Ciprofloxacin HCl (Ciprofloxacin HCl) 500 Mg Tablet, 500 MG PO BID Prescribed by: LIZET MARTÍNEZ on 07/30/21 0919 Dicyclomine HCl (Dicyclomine HCl) 20 Mg Tablet, 20 MG PO Q6H PRN for abdominal pain/bloating Prescribed by: LIZET MARTÍNEZ on 07/30/21918 Metronidazole (Metronidazole) 500 Mg Tablet, 500 MG PO BID Prescribed by: LIZET MARTÍNEZ on 07/30/21918 Discontinued Medications Ciprofloxacin HCl (Cipro) 500 Mg Tablet, 500 MG PO BID Prescribed by: STEPHANIE GUARDADO on 10/27/161843 Hydrocodone Bit/Acetaminophen (Lortab 5 Mg Tablet) 1 Each Tablet, 1 EACH PO Q4H PRN for PAIN Prescribed by: STEPHANIE GUARDADO on 10/27/161843 Hydrocodone/Acetaminophen (Hydrocodone-Acetamin 5-325 mg) 1 Each Tablet, 1 EACH PO Q4H PRN for PAIN-SEVERE (8-10) Prescribed by: GEO HARMNO on 06/16/201455 Ondansetron (Zofran Odt) 4 Mg Tab.rapdis, 4 MG SL Q4H PRN for NAUSEA/VOMITING- 1ST LINE Prescribed by: STEPHANIE GUARDADO on 10/27/161843 Ondansetron (Ondansetron Odt) 4 Mg Tab.rapdis, 4 MG PO Q6H PRN for NAUSEA/VOMITING Prescribed by: GEO HARMON on 06/16/201454 Tamsulosin HCl (Flomax) 0.4 Mg Cap, 0.4 MG PO DAILY Prescribed by: LIZET MARTÍNEZ on 12/22/192025 Tamsulosin HCl (Flomax) 0.4 Mg Cap, 0.4 MG PO DAILY PRN Prescribed by: GEO HARMON on 06/16/201454 Review of Systems Review of Systems Constitutional: No chills, No fever EENTM: no symptoms reported Respiratory: no symptoms reported Cardiovascular: no symptoms reported Gastrointestinal: see HPI, abdominal pain (LLQ); No diarrhea, No melena; nausea, vomiting (when pain is severe) Genitourinary: see HPI, dysuria, hematuria Musculoskeletal: back pain (left flank pain wrapping around to LLQ) Skin: no symptoms reported Psychiatric/Neurological: No Symptoms Reported Hematologic/Lymphatic: Denies Blood Clots, Denies Easy Bleeding, Denies Easy Bruising Past Nbupdux-Pmwjjy-Cfwfba Hx Patient Social History Tobacco Use?: Yes Tobacco type used: Cigarettes Smoking Status: Current Everyday Smoker Substance use?: No Alcohol Use?: No Seasonal Allergies Seasonal Allergies: No Past Medical History Surgery/Hospitalization HX: Kidney Stones, Hemorrhoids Surgeries: Yes (RETRIEVAL OF KIDNEY STONES.) Respiratory: No Cardiac: No Neurological: No Genitourinary: Yes Kidney Stones Gastrointestinal: Yes Hemorrhoids Musculoskeletal: No Endocrine: No HEENT: No Cancer: No Psychosocial: No Integumentary: No Blood Disorders: No Physical Exam Vital Signs Vital Signs - First Documented 07/30/21 07:27 Temp 36.6 Pulse 77 Resp 18 B/P (MAP) 154/117 (129) Pulse Ox 99 O2 Delivery Room Air Capillary Refill : Height, Weight, BMI Height: 6'1.00" Weight: 285lbs. oz. 129.528056mz; 40.00 BMI Method:Stated General Appearance: Anxious, Mild Distress, Obese HEENT: PERRL/EOMI, Pharynx Normal Neck: Full Range of Motion, Normal Inspection, Non Tender, Supple Respiratory: Chest Non Tender, Lungs Clear, Normal Breath Sounds, No Accessory Muscle Use, No Respiratory Distress Cardiovascular: Regular Rate, Rhythm, Normal Peripheral Pulses Gastrointestinal: Normal Bowel Sounds, No Pulsatile Mass, Soft; No Distended; Guarding (LLQ); No Rebound; Tenderness (LLQ) Back: No CVA Tenderness Extremity: Normal Capillary Refill, Normal Inspection, No Pedal Edema Neurologic/Psychiatric: Alert, Oriented x3, electrician ship II-XII Norm as Tested Skin: Normal Color, Warm/Dry Progress/Results/Core Measures Suspected Sepsis SIRS Temperature: Pulse: 77 Respiratory Rate: 18 Laboratory Tests 07/30/21 07:24: White Blood Count 7.8 Blood Pressure 154 /117 Mean: 129 Laboratory Tests 07/30/21 07:24: Creatinine 1.02, Platelet Count 271, Total Bilirubin 0.5 Results/Orders Lab Results Laboratory Tests Test 07/30/21 07:24 07/30/21 07:26 Range/Units White Blood Count 7.8 4.3-11.0 10^3/uL Red Blood Count 5.25 4.30-5.52 10^6/uL Hemoglobin 16.3 13.3-17.7 g/dL Hematocrit 48 40-54 % Mean Corpuscular Volume 91 80-99 fL Mean Corpuscular Hemoglobin 31 25-34 pg Mean Corpuscular Hemoglobin Concent 34 32-36 g/dL Red Cell Distribution Width 12.8 10.0-14.5 % Platelet Count 271 130-400 10^3/uL Mean Platelet Volume 10.7 9.0-12.2 fL Immature Granulocyte % (Auto) 0 % Neutrophils (%) (Auto) 46 42-75 % Lymphocytes (%) (Auto) 39 12-44 % Monocytes (%) (Auto) 11 0-12 % Eosinophils (%) (Auto) 3 0-10 % Basophils (%) (Auto) 1 0-10 % Neutrophils # (Auto) 3.6 1.8-7.8 10^3/uL Lymphocytes # (Auto) 3.0 1.0-4.0 10^3/uL Monocytes # (Auto) 0.9 0.0-1.0 10^3/uL Eosinophils # (Auto) 0.2 0.0-0.3 10^3/uL Basophils # (Auto) 0.1 0.0-0.1 10^3/uL Immature Granulocyte # (Auto) 0.0 0.0-0.1 10^3/uL Sodium Level 140 135-145 MMOL/L Potassium Level 4.4 3.6-5.0 MMOL/L Chloride Level 104 98-107 MMOL/L Carbon Dioxide Level 25 21-32 MMOL/L Anion Gap 11 5-14 MMOL/L Blood Urea Nitrogen 15 7-18 MG/DL Creatinine 1.02 0.60-1.30 MG/DL Estimat Glomerular Filtration Rate 102 BUN/Creatinine Ratio 15 Glucose Level 103 70-105 MG/DL Calcium Level 9.8 8.5-10.1 MG/DL Corrected Calcium 8.5-10.1 MG/DL Total Bilirubin 0.5 0.1-1.0 MG/DL Aspartate Amino Transf (AST/SGOT) 19 5-34 U/L Alanine Aminotransferase (ALT/SGPT) 28 0-55 U/L Alkaline Phosphatase 49 40-136 U/L Total Protein 7.6 6.4-8.2 GM/DL Albumin 4.7 H 3.2-4.5 GM/DL Lipase 19 8-78 U/L Urine Color YELLOW Urine Clarity CLEAR Urine pH 5.5 5-9 Urine Specific [place] >=1.030 1.016-1.022 Urine Protein NEGATIVE NEGATIVE Urine Glucose (UA) NEGATIVE NEGATIVE Urine Ketones NEGATIVE NEGATIVE Urine Nitrite NEGATIVE NEGATIVE Urine Bilirubin NEGATIVE NEGATIVE Urine Urobilinogen 0.2 < = 1.0 MG/DL Urine Leukocyte Esterase NEGATIVE NEGATIVE Urine RBC (Auto) NEGATIVE NEGATIVE Urine RBC NONE /HPF Urine WBC RARE /HPF Urine Squamous Epithelial Cells RARE /HPF Urine Crystals NONE /LPF Urine Bacteria NEGATIVE /HPF Urine Casts NONE /LPF Urine Mucus SMALL H /LPF Urine Culture Indicated NO Urine Opiates Screen NEGATIVE NEGATIVE Urine Oxycodone Screen NEGATIVE NEGATIVE Urine Methadone Screen NEGATIVE NEGATIVE Urine Propoxyphene Screen NEGATIVE NEGATIVE Urine Barbiturates Screen NEGATIVE NEGATIVE Ur Tricyclic Antidepressants Screen NEGATIVE NEGATIVE Urine Phencyclidine Screen NEGATIVE NEGATIVE Urine Amphetamines Screen NEGATIVE NEGATIVE Urine Methamphetamines Screen NEGATIVE NEGATIVE Urine Benzodiazepines Screen NEGATIVE NEGATIVE Urine Cocaine Screen NEGATIVE NEGATIVE Urine Cannabinoids Screen NEGATIVE NEGATIVE My Orders Orders - LIZET MARTÍNEZ MD Comprehensive Metabolic Panel (07/30/21 07:21) Lipase (07/30/21 07:21) Ua Culture If Indicated (07/30/21 07:21) Ed Iv/Invasive Line Start (07/30/21 07:21) Cbc With Automated Diff (07/30/21 07:21) Ct Abdomen/Pelvis Wo (07/30/21 07:21) Drug Screen Stat (Urine) (07/30/21 07:21) Ns Iv 1000 Ml (Sodium Chloride 0.9%) (07/30/21 07:21) Ketorolac Injection (Toradol Injection) (07/30/21 07:21) Ondansetron Injection (Zofran Injectio (07/30/21 07:21) Vital Signs/I&O 07/30/21 07:27 Temp 36.6 Pulse 77 Resp 18 B/P (MAP) 154/117 (129) Pulse Ox 99 O2 Delivery Room Air Capillary Refill : Blood Pressure Mean: 129 Progress Note #1: Progress Note Check labs, urine and CT scan without contrast of abdomen and pelvis to evaluate for possible kidney stone vs colitis vs diverticulitis vs proctitis vs colon mass vs pyelonephritis. Urine drug screen to look for drugs of abuse or reasons for his pain and bleeding. Also if need to prescribe opioid/narcotic will refer to this and to [facility] prior to prescribing controlled substance. Give 1 L NS IVF for hydration, Zofran 4 mg IV for nausea, Toradol 30 mg IV for pain. Progress Note #2: Time: 08:22 Progress Note Labs are stable without acute significant abnormality to account for his LLQ abdominal pain and bright red blood in stools. Rectal exam showed a small amount of bright red blood but no external hemorrhoids. Urine was clear of infection and no blood in urine either. CT scan read out as no acute significant intra- abdominal process for his pain. He did go to the bathroom and had a BM with bright red blood. With him have LLQ pain and no kidney stones to account for this will try treating for possible diverticular disease vs colitis as potential cause of pain in addition to internal hemorrhoids. Will treat with course of antibiotics and increase fiber in diet. Increase fluid intake as well. Encourage him to establish care with [facility] provider and anticipate colonoscopy or sigmoidoscopy to further evaluate his BRBPR and LLQ pain. Hospice Admitting Clerk on follow up and return precautions of fever over 101 F, uncontrolled vomiting, worsening pain, bleeding to the point that he is getting dizzy and light headed. 0917 I spent over 25 minutes reviewing results and plan with patient. Advised that although I can not officially diagnose him with diverticulitis or colitis will treat him with antibiotic to cover for this possibility based on his symptoms. Usually the hemorrhoids as a source of bleeding would not be causing him LLQ abdominal pain, bloating, pressure. Will try Bentyl for the pain and bloating to see if that helps while he takes Flagyl and Cipro. Stress importance of high fiber diet and increase water intake as well as follow up for more definitive diagnosis. Diagnostic Imaging Diagonstic Imaging: CT Plain Films/CT/US/NM/MRI: abdomen, pelvis Comments NAME: JAYNE GUZMÁN [facility] REC#: [id number] PT STATUS: REG ER : 1990 PHYSICIAN: LIZET MARTÍNEZ MD ADMIT DATE: 07/30/21/ER FS Draft Date of Exam:07/30/21 CT ABDOMEN/PELVIS WO CLINICAL INDICATION: Patient with left lower quadrant abdominal pain, hematuria and blood in stool. EXAM: CT exam of the abdomen and pelvis is performed without IV or oral contrast using stone protocol. Coronal and sagittal reformatted images were created. Auto Exposure Controls were utilized during the CT exam to meet ALARA standards for radiation dose reduction. Comparisons: CT scan of abdomen and pelvis without contrast dated 06/16/2020. Findings: Visualized lung bases: Unremarkable. Liver: Unremarkable as visualized. Gallbladder: Unremarkable. Pancreas: Unremarkable as visualized. Spleen: Unremarkable as visualized. Adjacent splenial is again seen. Adrenal glands: Unremarkable. Kidneys/ ureters: The previously seen 4 mm stone within the distal right ureter has resolved. The previously seen right hydronephrosis has resolved. There are no urinary tract stones seen. There is no hydronephrosis or renal mass. There is slight increased density involving the bilateral renal pyramids which may represent subtle medullary calcinosis. This is best seen on the coronal sequence. Aorta: Unremarkable as visualized. Intraabdominal/ retroperitoneal contents: Unremarkable. Intestines: Unremarkable as visualized. Appendix: Unremarkable. Bladder: The bladder is decompressed which limits evaluations. Bladder is otherwise unremarkable as visualized. Pelvic organs: Unremarkable as visualized. Extra abdominal/ pelvis regions: Unremarkable. Abdominal wall: Unremarkable. Bones: Unremarkable. Impression: 1: There is no CT evidence of acute abdominal pelvic process. There are no urinary tract stone seen. The previously seen right ureteral stone and right hydronephrosis has resolved. 2: Slight increased density of the bilateral renal pyramids which may represent subtle medullary calcinosis. 3: Bladder is decompressed and not well visualized on this exam. Dictated on workstation # [id number] Dict: 07/30/21 0804 Trans: 07/30/21 0817 CV [id number] Interpreted by: AGATA FAITH MD Electronically signed by: Reviewed: Reviewed by Me Departure Impression Primary Impression: LLQ abdominal pain Additional Impression: Bright red blood per rectum Disposition: 01 HOME, SELF-CARE Condition: Stable Departure-Patient Inst. Decision time for Depature: 08:39 Referrals: PHILIPPE SHORE,LOCAL PHYSICIAN (PCP) Primary Care Physician [facility] Call [phone] to get established with primary care provider for follow up and to help you get set up for scope to look for source of bleeding and pain Patient Instructions: Abdominal Pain, Adult ED, Bloody Stools, Adult ED, High Fiber Diet, Nausea and Vomiting, Adult ED Add. Discharge Instructions: Increase the fiber in your diet and drink more water to help keep your stools soft and regular. Take the full course of antibiotics to treat for possible infection/inflammatory process in your colon and rectum contributing to your bleeding with bowel movements and pain in your left lower abdomen and rectum. Call [facility] clinic to see about establishing care with a primary provider so you could follow up and they can help get you set up to do a scope to look for source of your bleeding and pain Return or seek medical care if you have fever over 101 F, uncontrolled vomiting, worsening pain, bleeding to the point that you are getting dizzy and light headed. You could also try calling Dr. Shore, the surgeon business line controller for [facility], directly about follow up and evaluation for the blood and pain in your left lower abdomen and rectum. All discharge instructions reviewed with patient and/or family. Voiced understanding. Scripts Dicyclomine HCl (Dicyclomine HCl) 20 Mg Tablet 20 MG PO Q6H PRN for abdominal pain/bloating for 5 Days, #20 TAB 0 Refills Prov: LIZET MARTÍNEZ MD 07/30/21 Ciprofloxacin HCl (Ciprofloxacin HCl) 500 Mg Tablet 500 MG PO BID for bloody stools for 7 Days, #14 TAB 0 Refills Prov: LIZET MARTÍNEZ MD 07/30/21 Metronidazole (Metronidazole) 500 Mg Tablet 500 MG PO BID for Bloody stools for 7 Days, #14 TAB 0 Refills Prov: LIZET MARTÍNEZ MD 07/30/21 Work/School Note: Work Release Form Date Seen in the Emergency Department: Jul 30, 2021 Return to Work: Jul 31, 2021 Restrictions: Return-No Vomiting(24hrs) LIZET MARTÍNEZ MD Jul 30, 2021 07:42
[2021-07-30 07:44] LABS: BASOPHILS # (AUTO) 0.1 10^3/uL (0.0-0.1); BASOPHILS % (AUTO) 1 % (0-10); EOSINOPHILS # (AUTO) 0.2 10^3/uL (0.0-0.3); EOSINOPHILS % (AUTO) 3 % (0-10); HEMATOCRIT 48 % (40-54); HEMOGLOBIN 16.3 g/dL (13.3-17.7); LYMPHOCYTES % (AUTO) 39 % (12-44); MEAN CORPUSCULAR HEMOGLOBIN 31 pg (25-34); MEAN CORPUSCULAR HGB CONC 34 g/dL (32-36); MEAN CORPUSCULAR VOLUME 91 fL (80-99); MEAN PLATELET VOLUME 10.7 fL (9.0-12.2); MONOCYTES # (AUTO) 0.9 10^3/uL (0.0-1.0); MONOCYTES % (AUTO) 11 % (0-12); NEUTROPHILS # (AUTO) 3.6 10^3/uL (1.8-7.8); NEUTROPHILS % (AUTO) 46 % (42-75); PLATELET COUNT 271 10^3/uL (130-400); WHITE BLOOD COUNT 7.8 10^3/uL (4.3-11.0)
[2021-07-30 07:53] LABS: BACTERIA,URINE NEGATIVE /HPF; SQUAMOUS EPITHELIAL CELL,UR RARE /HPF; WBC,URINE RARE /HPF
[2021-07-30 07:55] LABS: AMPHETAMINE SCREEN, URINE NEGATIVE (NEGATIVE); BARBITURATE SCREEN URINE NEGATIVE (NEGATIVE); BENZODIAZEPINES SCREEN URINE NEGATIVE (NEGATIVE); CANNABINOID SCREEN, URINE NEGATIVE (NEGATIVE); COCAINE SCREEN URINE NEGATIVE (NEGATIVE); METHADONE STAT NEGATIVE (NEGATIVE); METHAMPHETAMINE SCREEN URINE S NEGATIVE (NEGATIVE); OPIATE SCREEN URINE NEGATIVE (NEGATIVE); OXYCODONE STAT NEGATIVE (NEGATIVE); PROPOXYPHENE STAT NEGATIVE (NEGATIVE); TRICYCLIC ANTIDEPRESSANTS SCRE NEGATIVE (NEGATIVE)
[2021-07-30 08:07] LABS: ALANINE AMINOTRANSFERASE 28 U/L (0-55); ALBUMIN 4.7 GM/DL (3.2-4.5); ALKALINE PHOSPHATASE 49 U/L (40-136); BILIRUBIN,TOTAL 0.5 MG/DL (0.1-1.0); BUN/CREATININE RATIO 15; CALCIUM 9.8 MG/DL (8.5-10.1); CARBON DIOXIDE 25 MMOL/L (21-32); CHLORIDE 104 MMOL/L (98-107); CREATININE SERUM 1.02 MG/DL (0.60-1.30); GFR ESTIMATED 102; GLUCOSE 103 MG/DL (70-105); LIPASE 19 U/L (8-78); POTASSIUM 4.4 MMOL/L (3.6-5.0); SODIUM 140 MMOL/L (135-145); TOTAL PROTEIN 7.6 GM/DL (6.4-8.2)
--- NOTE | 2021-07-30 08:18 | Diagnostic Imaging Report ---
CLINICAL INDICATION: Patient with left lower quadrant abdominal pain, hematuria and blood in stool. EXAM: CT exam of the abdomen and pelvis is performed without IV or oral contrast using stone protocol. Coronal and sagittal reformatted images were created. Auto Exposure Controls were utilized during the CT exam to meet ALARA standards for radiation dose reduction. Comparisons: CT scan of abdomen and pelvis without contrast dated 06/16/2020. Findings: Visualized lung bases: Unremarkable. Liver: Unremarkable as visualized. Gallbladder: Unremarkable. Pancreas: Unremarkable as visualized. Spleen: Unremarkable as visualized. Adjacent splenial is again seen. Adrenal glands: Unremarkable. Kidneys/ ureters: The previously seen 4 mm stone within the distal right ureter has resolved. The previously seen right hydronephrosis has resolved. There are no urinary tract stones seen. There is no hydronephrosis or renal mass. There is slight increased density involving the bilateral renal pyramids which may represent subtle medullary calcinosis. This is best seen on the coronal sequence. Aorta: Unremarkable as visualized. Intraabdominal/ retroperitoneal contents: Unremarkable. Intestines: Unremarkable as visualized. Appendix: Unremarkable. Bladder: The bladder is decompressed which limits evaluations. Bladder is otherwise unremarkable as visualized. Pelvic organs: Unremarkable as visualized. Extra abdominal/ pelvis regions: Unremarkable. Abdominal wall: Unremarkable. Bones: Unremarkable. Impression: 1: There is no CT evidence of acute abdominal pelvic process. There are no urinary tract stone seen. The previously seen right ureteral stone and right hydronephrosis has resolved. 2: Slight increased density of the bilateral renal pyramids which may represent subtle medullary calcinosis. 3: Bladder is decompressed and not well visualized on this exam. Dictated by: Dictated on workstation # [id number]
[2021-07-30] MEDS ORDERED: METR-145 PO (09:19)
[2021-07-30] MEDS ORDERED: CIPR500T5 PO (09:19)
[2021-07-30] MEDS ORDERED: DICY20TA PO (09:19)
== END 2021-07-30 11:27 | disposition home or self-care (01) ==
LOC: EDUNIT# 07:12 → ER FS 07:13
DX: K62.5 Hemorrhage of anus and rectum (principal); R10.32 Left lower quadrant pain; E66.9 Obesity, unspecified; F17.210 Nicotine dependence, cigarettes, uncomplicated; Z68.41 Body mass index [BMI] 40.0-44.9, adult
CPT/HCPCS: 36415; 74176; 80053; 80306; 81000; 83690; 85025